=== PATIENT | male | born 1955 | race Caucasian/White ===

== ENCOUNTER 2017-04-16 14:34 | Emergency (ER) | payer BC ==
[~2017-04-16] VITALS: Ht 177.8 cm; Wt 61.8 kg
[2017-04-16 14:56] LABS: MCH 35.2 PG (29.0-34.0); MCHC 35.3 G/DL (30.0-36.0); MCV 99.5 FL (86-99); MEAN PLAT.VOLUME 8.6 uM^3 (9.0-12.4); PLATELET COUNT 237 K/uL (156-360); RBC DIS.WIDTH-CV 12.6 % (11.8-14.6); RBC DIS.WIDTH-SD 46.9 % (39-53); RED BLOOD COUNT 4.32 M/uL (4.00-5.50); WHITE BLOOD COUNT 10.7 K/uL (4.1-10.2)
[2017-04-16 15:10] LABS: CHLORIDE 106 mEq/L (99-109); POTASSIUM 4.1 mEq/L (3.7-5.4)
[2017-04-16 15:11] LABS: SODIUM 138 mEq/L (136-147)
[2017-04-16 15:12] LABS: ADD MIUA? YES; BILIRUBIN NEGATIVE; BLOOD SMALL; COLOR YELLOW ((YELLOW)); GLUCOSE (STRIP) NEGATIVE; KETONES 5; LEUKOCYTES NEGATIVE; NITRITE NEGATIVE; PROTEIN (STRIP) NEGATIVE; SPECIFIC GRAVITY 1.012 (1.000-1.030); UROBILINOGEN 0.2 MG/DL (0.2-1.0)
[2017-04-16 15:13] LABS: GLUCOSE 88 mg/dL (70-99)
[2017-04-16 15:14] LABS: ANION GAP 9 MEQ/L (2-14)
[2017-04-16 15:14] LABS: BACTERIA NONE SEEN /HPF; EPITHELIAL CELLS NONE SEEN /HPF; MUCUS TRACE /LPF; UCUL ADDED? NO; WHITE BLOOD CELLS 0-5 /HPF (0-5)
[2017-04-16 15:15] LABS: TOTAL BILIRUBIN 0.9 mg/dL (0.0-1.0)
[2017-04-16 15:16] LABS: ALKALINE PHOSPHATASE 68 IU/L (3-129); GFR ESTIMATE (CALCULATED) > 59 mL/min/
[2017-04-16 15:18] LABS: UREA NITROGEN (BUN) 13 mg/dL (9-23)
[2017-04-16 15:20] LABS: LIPASE 36 U/L (1.0-51.0)
[2017-04-16] MEDS ORDERED: FLONASE16 G1 BOTH NARES (15:57)
[2017-04-16] MEDS ORDERED: BREO ELLIPTA I1 EACH IH (15:57)
[2017-04-16] MEDS ORDERED: INCRUSE ELLI62.5 MCG IH (15:57)
[2017-04-16] MEDS ORDERED: SIMVASTATIN (15:58)
[2017-04-16] MEDS ORDERED: LO-DOSE ASPIRIN81 M1 PO (15:58)
[2017-04-16] MEDS ORDERED: ZYRTEC10 M3 PO (15:59)
[2017-04-16 18:25] VITALS: BP 118/88
== END 2017-04-16 19:18 | disposition home or self-care (01) ==
LOC: EME 14:34
DX: R10.31 Right lower quadrant pain (principal); R11.0 Nausea; J44.9 Chronic obstructive pulmonary disease, unspecified; Z79.82 Long term (current) use of aspirin; Z87.891 Personal history of nicotine dependence
CPT/HCPCS: 74177; 80053; 81003; 83690; 85027; 99281; 99285